=== PATIENT | male | born 1995 | race Caucasian/White ===

== ENCOUNTER 2018-05-07 02:16 | Emergency (ER) | payer OTHER ==
[~2018-05-07] VITALS: Ht 182.9 cm; Wt 149.4 kg
[2018-05-07 02:23] VITALS: Ht 182.9 cm; Wt 149.4 kg
[2018-05-07] MEDS ORDERED: SOD CHLORIDE 0.9% 1,000 ML IV STA (02:29)
[2018-05-07] MEDS ORDERED: ONDANSETRON 4 MG INJ IV STA (02:29)
[2018-05-07] MEDS ORDERED: KETOROLAC 30 MG INJ IV STA (02:29)
[2018-05-07] MEDS ORDERED: morphine 4 MG/ML VIAL IV STA (02:29)
--- NOTE | 2018-05-07 04:35 | ERD ---
ER Documentation Chief Complaint Chief Complaint left flank pain x 30 minutes. hx of kidney stone HPI This is a 22-year-old male with left flank pain for 30 minutes. Patient has history of kidney stones in the past. Pain is similar to some previous episodes. Pain is mild to moderate intensity colicky nature with no exacerbating relieving factors. Mild associated nausea but no vomiting. ROS All systems reviewed and are negative except as per history of present illness. Allergies Allergies: Coded Allergies: No Known Drug Allergies (Verified Allergy, Unknown, 05/07/18) PMhx/Soc Medical and Surgical Hx: pt denies Surgical Hx History of Surgery: No Anesthesia Reaction: No Hx Neurological Disorder: No Hx Respiratory Disorders: No Hx Cardiac Disorders: No Hx Psychiatric Problems: No Hx Miscellaneous Medical Probl: Yes (KIDNEY STONES) Hx Alcohol Use: No Hx Substance Use: No Hx Tobacco Use: No Smoking Status: Never smoker Physical Exam Vitals Vital Signs Date Temp Pulse Resp B/P (MAP) Pulse Ox O2 O2 Flow FiO2 Time Delivery Rate 05/07/18 82 20 124/79 95 Room Air 04:00 (94) 05/07/18 88 22 160/91 97 Room Air 02:45 (114) 05/07/18 98.8 109 18 145/98 98 02:23 (114) Physical Exam Const: No acute distress Head: Atraumatic Eyes: Normal Conjunctiva ENT: Normal External Ears, Nose and Mouth. Neck: Full range of motion. No meningismus. Resp: Clear to auscultation bilaterally Cardio: Regular rate and rhythm, no murmurs Abd: Soft, non tender, non distended. Normal bowel sounds Skin: No petechiae or rashes Back: No midline or flank tenderness Ext: No cyanosis, or edema Neur: Awake and alert Psych: Normal Mood and Affect Result Diagram: 05/07/18 0239 05/07/18 0239 Results 24 hrs Laboratory Tests Test 05/07/18 02:39 White Blood Count 8.9 10^3/ul Red Blood Count 5.08 10^6/ul Hemoglobin 14.8 g/dl Hematocrit 43.4 % Mean Corpuscular Volume 85.4 fl Mean Corpuscular Hemoglobin 29.1 pg Mean Corpuscular Hemoglobin Concent 34.1 g/dl Red Cell Distribution Width 11.9 % Platelet Count 132 10^3/UL Mean Platelet Volume 10.2 fl Immature Granulocytes % 0.400 % Neutrophils % 41.4 % Lymphocytes % 44.8 % Monocytes % 11.9 % Eosinophils % 1.1 % Basophils % 0.4 % Nucleated Red Blood Cells % 0.0 /100WBC Immature Granulocytes # 0.040 10^3/ul Neutrophils # 3.7 10^3/ul Lymphocytes # 4.0 10^3/ul Monocytes # 1.1 10^3/ul Eosinophils # 0.1 10^3/ul Basophils # 0.0 10^3/ul Nucleated Red Blood Cells # 0.0 10^3/ul Sodium Level 144 mmol/L Potassium Level 4.0 mmol/L Chloride Level 107 mmol/L Carbon Dioxide Level 26 mmol/L Anion Gap 11 Blood Urea Nitrogen 15 mg/dl Creatinine 0.87 mg/dl Est Glomerular Filtrat Rate mL/min > 60 mL/min Glucose Level 108 mg/dl Calcium Level 9.3 mg/dl Total Bilirubin 0.6 mg/dl Direct Bilirubin 0.00 mg/dl Indirect Bilirubin 0.6 mg/dl Aspartate Amino Transf (AST/SGOT) 26 IU/L Alanine Aminotransferase (ALT/SGPT) 32 IU/L Alkaline Phosphatase 47 IU/L Total Protein 7.3 g/dl Albumin 4.1 g/dl Globulin 3.20 g/dl Albumin/Globulin Ratio 1.28 Lipase 84 U/L Current Medications Medications Dose Sig/Sam Start Time Status Last (Trade) Ordered Route PRN Stop Time Admin Dose Reason Admin Sodium 1,000 ml @ Q1H STAT 05/07/18 DC 05/07/18 Chloride 1,000 mls/hr IV 02:29 02:38 05/07/18 03:28 Morphine 4 mg ONCE STAT 05/07/18 DC 05/07/18 Sulfate IV 02:29 02:38 (morphine) 05/07/18 02:31 Ondansetron 4 mg ONCE STAT 05/07/18 DC 05/07/18 HCl (Zofran IV 02:29 02:38 Inj) 05/07/18 02:31 Ketorolac 30 mg ONCE STAT 05/07/18 DC 05/07/18 Tromethamine IV 02:29 02:38 (Toradol) 05/07/18 02:31 Procedures/MDM Emergency department course: Patient seen about by triage nurse. Placed in bed from evaluation. Had intravenous access. Given normal saline fluid bolus. Given pain medication. Outside CT scan. Medical decision making: Very pleasant patient with what looks to be kidney stone that is recently passed. Patient stable for trial of outpatient management. Patient's gastrointestinal symptoms have stabilized while in the department. No evidence of severe dehydration, sepsis, or surgical abdomen. Extensive discussion with family and patient that occult disease cannot be ruled out. 8 hour recheck for repeat abdominal exam is planned. Departure Diagnosis: Primary Impression: Flank pain Condition: Stable AMOL BILLINGS May 07, 2018 04:35
[2018-05-07] MEDS ORDERED: TRAM50TA2 PO (04:38)
[2018-05-07] MEDS ORDERED: TAMS-14 PO (04:38)
[2018-05-07 04:40] VITALS: BP 137/93; PULSE 79; RESP 18
== END 2018-05-07 04:50 | disposition home or self-care (01) ==
LOC: E/R 02:16
DX: R10.9 Unspecified abdominal pain (principal); R11.0 Nausea
CPT/HCPCS: 36415; 74176; 80053; 83690; 85025; 96374; 96375; 99285; J1885; J2270; J2405; J7030